=== PATIENT | female | born 1990 | race Caucasian/White ===

== ENCOUNTER 2017-06-19 08:05 | Outpatient (CLI) | payer BC | END 2017-06-19 08:06 | disposition home or self-care (01) | LOC: DTY/OP 08:05 | PROVIDERS: ATTEND Specialist | DX: Z01.818 Encounter for other preprocedural examination (principal); E66.01 Morbid (severe) obesity due to excess calories | CPT/HCPCS: 36415; 80053; 80061; 82306; 82607; 82728; 82746; 83036; 83540; 84425; 84436; 84443; 84479; 85025; 86677; 97802 ==

== ENCOUNTER 2017-08-11 11:36 | Outpatient (CLI) | payer BC ==
[2017-08-11 13:28] LABS: BHCG - Serum Negative (NEGATIVE); Pregs Control Background? CLEAR/WHITE (CLR/WHITE); Pregs Control Bar Appear? YES (CONTROL BAR)
== END 2017-08-11 11:37 | disposition home or self-care (01) ==
LOC: LABBT 11:36
PROVIDERS: ATTEND Specialist
DX: Z01.818 Encounter for other preprocedural examination (principal); E66.01 Morbid (severe) obesity due to excess calories
CPT/HCPCS: 84703

== ENCOUNTER 2017-08-11 13:00 | Inpatient (IN) | payer BC ==
[2017-08-11 12:22] VITALS: BMI 41.8
--- NOTE | 2017-08-11 13:54 | HP ---
"ADDENDUM: This is an addendum to H&P #[id number] dictated on 06/09/2017." HISTORY OF PRESENT ILLNESS: Gabbi Vazquez is a 26-year-old female, attending our bariatric seminar and going through our bariatric program, interested in laparoscopic sleeve gastrectomy due to failure of past dietary efforts to obtain a sustainable weight loss. Initially when I saw her, her weight w as 300 pounds, BMI 41 and has remained fairly constant in her preoperative evaluation such that today she is 300 pounds, 41 BMI, 5 foot 11 inches. She has seen Psychology, obtain bariatric labs and fel t to be a good candidate for bariatric surgery as she will participate in perioperative and postopera tive followup and support groups and understands she will need to take an active role in dietary ana lilia ctions and an activities to obtain optimal results. 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 Risks and benefits of procedure reviewed today. Questions answere roderick. ALLERGIES: CECLOR. MEDICATIONS: Metformin 500 twice a day, duloxetine 60 mg daily, spironolactone 25 mg daily. PAST MEDICAL HISTORY: 1. Environmental allergies. 2. Asthma 3. Diabetes. 4. Obesity. 5. Depression. PAST SURGICAL HISTORY: Appendectomy in 2003. REVIEW OF SYSTEMS: Ten point otherwise noncontributory. PHYSICAL EXAMINATION: VITAL SIGNS: Height 5 foot 11, 300 pounds, 41.19 BMI. Blood pressure 130/89, 84, 96.8 degrees. HEENT: Unremarkable. LUNGS: Clear to auscultation. CARDIAC: Regular rate and rhythm without murmur or gallop. ABDOMEN: Soft, obese, nontender. NEURO: Neurologically intact. No focal deficit. LYMPH: No lymphadenopathy in neck, axilla, groins. EXTREMITIES: Without edema, without venous stasis changes. ASSESSMENT AND PLAN: Morbid obesity with comorbidities of diabetes mellitus type 2 and depression. PLAN: Laparoscopic sleeve gastrectomy. Risk of infection, bleeding, reoperation, outlet obstruction , nausea, vomiting discussed. She consents. Possibility of reflux discussed. Questions answered.
--- NOTE | 2017-08-11 13:59 | HP ---
HISTORY OF PRESENT ILLNESS: A 20-umpc-alo female, 5 feet 11, 300 pounds 41.9 BMI, attended our bariatric seminar recently and interested in laparoscopic sleeve gastrectomy. She is followed by Dr. Alli Ceballos. She is on metformin for prediabetes and takes spironolactone for masculinizing hormo ne. 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 Her parents help her with her child nurse. Her mother had a laparoscopic sleeve gastrectomy that I performed. Ba tomas hopes to have a successful weight loss to have a more active and productive life and to avoid assoc iated medical problems with obesity and to resolve her early diabetes. She does not have sleep apnea , although both of her parents have sleep apnea. She denies experiencing any prior history of horowitz ry artery disease, cholesterol, hypertension, GERD. She has had numerous aggressive attempts at weig ht loss, which have been unsuccessful or not durable. She understands that she will have to actively participate in good food choices and participate in activity level and follow up to be successful an d has good expectations of bariatric surgery. PAST MEDICAL HISTORY: Diabetes mellitus, just started on metformin; asthma; environmental allergies. PAST SURGICAL HISTORY: Appendectomy in the past, 1, para 1. A 2-1/2-year-old boy. FAMILY HISTORY: Hypertension, sleep apnea. Her great aunt and great paternal grandmother of ca ncer of some sort. TOBACCO: None. ALCOHOL: Rarely. MEDICATIONS: Metformin 500 mg twice a day, duloxetine 60 mg once a day, spironolactone 25 mg once a day. REVIEW OF SYSTEMS: Ten-point noncontributory. PHYSICAL EXAMINATION: VITAL SIGNS: 5 feet 11, 300 pounds, 41.9 BMI, 142/93, 105, 98.6 degrees. HEAD, EARS, EYES, NOSE, AND THROAT: Unremarkable. LUNGS: Clear to auscultation. CARDIAC: Regular rate and rhythm without murmur, rub, or gallop. ABDOMEN: Soft, obese, nontender, no evident hernias. LYMPH: Groins, axillar, and neck without lymphadenopathy. NEUROLOGIC: Neurologically intact. No focal deficits. EXTREMITIES: No evidence of venous stasis disease and no ankle edema. ASSESSMENT AND PLAN: 1. Morbid obesity, 5 feet 11, 300 pounds, 41.9 BMI with comorbidities of early diabetes on metformin and masculinizing hormone, on spironolactone. Risk of infection, bleeding, reoperation, sleeve brien rectomy leakage, etc., discussed. Questions answered. She is well informed from the seminar 2. Diabetes mellitus. 3. Masculinizing hormone, on spironolactone. 4. Depression, on duloxetine.
[2017-08-13] MEDS ORDERED: Scopolamine 1.5 mg/72 hour Patch ONE (09:49)
[2017-08-13] MEDS ORDERED: Ketorolac Tromethamine 30 MG/ML VIAL ONE (09:49)
[2017-08-13] MEDS ORDERED: Heparin 5,000 UNITS/ML VIAL ONE (09:49)
[2017-08-13] MEDS ORDERED: Fentanyl 250 MCG/5 ML VIAL ONE (10:17)
[2017-08-13] MEDS ORDERED: Bupivacaine/Epinephrine 0.25% 30 ML VIAL ONE (10:23)
[2017-08-13] MEDS ORDERED: Midazolam HCl 2 mg/2 ml Vial ONE (10:38)
[2017-08-13] MEDS ORDERED: CEFAZOLIN/Water 2 GM/20 ML SYRINGE ONE (10:38)
[2017-08-13] MEDS ORDERED: Levofloxacin 500 mg/D5W 100 ml Premix Bag ONE (10:52)
[2017-08-13] MEDS ORDERED: cefOXitin 2 GM, Syringe 1 ML in Sterile Water 10 ML SLOW IVP SCH (11:00)
[2017-08-13] MEDS ORDERED: Promethazine HCl 25 MG/ML VIAL SLOW IVP PRN (12:48)
[2017-08-13] MEDS ORDERED: Ondansetron HCl/PF 4 MG/2 ML Vial IVP PRN ×2 (12:48→12:50)
[2017-08-13] MEDS ORDERED: Morphine Sulfate 2 MG/ML SYRINGE SLOW IVP PRN (12:48)
[2017-08-13] MEDS ORDERED: Promethazine HCl 25 MG/ML VIAL IM PRN ×2 (12:48→15:20)
[2017-08-13] MEDS ORDERED: diphenhydrAMINE 50 MG/ML VIAL IVP PRN (12:50)
[2017-08-13] MEDS ORDERED: HumaLOG 300 UNITS/3 ML VIAL SC PRN (12:50)
[2017-08-13] MEDS ORDERED: Dextrose 5% in Water 1,000 ML IV PRN (12:50)
[2017-08-13] MEDS ORDERED: hydrALAZINE 20 MG/ML VIAL SLOW IVP PRN (12:50)
[2017-08-13] MEDS ORDERED: Dextrose 50% Abboject 50 ML SYRINGE SLOW IVP PRN (12:50)
[2017-08-13] MEDS ORDERED: Morphine 4 MG/ML VIAL SLOW IVP PRN ×2 (12:50)
[2017-08-13] MEDS ORDERED: Ondansetron ODT 8 MG TAB PO PRN (12:56)
[2017-08-13] MEDS ORDERED: Ondansetron ORAL SOLN. 4 MG/5 ML UDCUP PO PRN ×2 (12:56)
[2017-08-13] MEDS ORDERED: Ondansetron ODT 4 MG TAB PO PRN (12:56)
[2017-08-13] MEDS ORDERED: Ondansetron ODT 8 MG TAB SL PRN (12:56)
--- NOTE | 2017-08-13 13:14 | OP ---
DATE OF PROCEDURE: 08/13/2017 PREOPERATIVE DIAGNOSES: 1. Morbid obesity. 2. Depression. 3. Diabetes mellitus. 4. Weight 300 pounds, 41 BMI. POSTOPERATIVE DIAGNOSES: 1. Morbid obesity. 2. Depression. 3. Diabetes mellitus. 4. Weight 300 pounds, 41 BMI. PROCEDURE: Laparoscopic sleeve gastrectomy, completion endoscopy, 36 Nigerian bougie used, staple line within 4 cm of the pylorus. SURGEON: Dr. Raymond Garcia ANESTHESIA: General. Local 0.25% Marcaine with epinephrine 60 mL. Completion endoscopy revealed visualization of the pylorus, passed easily without restriction. PROCEDURE: The patient was taken to the operating room where under general anesthesia, abdomen was p repared with ChloraPrep, draped in routine fashion. Local anesthetic infiltrated in the skin and sub cutaneous tissue about all port sites. Supraumbilical incision made and pneumoperitoneum to 15 mmHg obtained the Veress needle replacing it with a 5 port, video laparoscope inserted. Bilateral upper a bdominal midclavicular incisions made and a 15 port placed on the left, a 12 port placed on the right . Bilateral far lateral subcostal incision made and 5 ports placed. Subxiphoid incision made and a Nathansen liver retractor placed reflecting the left lobe of liver anteriorly. Liver was small and n ot fatty at all. Gallbladder appeared to be normal grossly, abdominal cavity was normal. The stomac h was large, but not thick walled. Omentum was bulky. At this point, the stomach decompressed with an orogastric tube, which was removed. Gastrocolic ligament taken down from the stomach using the Li gaSure beginning within 4 cm of pylorus advancing cephalad along the greater curvature of the stomach up to the angle of His. Posterior stomach was cleared and fully mobilized. At this point, a #36 Fr ench bougie placed orally by Anesthesia, visualized laparoscopically to be within the abdominal cavit y along the lesser curvature, directed down towards the pylorus. The stomach serially divided initia lly with Endo-BRYAN stapler using green load, then gold load and then serial blue load staplers taking care not to narrow the incisura and staying clear of the angle of His. Good staple line was visualiz ed. The stomach was removed through the 15 mm port site left upper abdomen and this incision closed with suture of 0 Vicryl GraNee needle under laparoscopic visualization. The stomach was removed and submitted to Pathology. Good hemostasis noted. Completion endoscopy performed as I advanced to the head of the table and performed upper endoscopy visualizing the oropharynx, esophagus, passing the sc ope down into the gastric sleeve, visualizing the pylorus, decompressing the stomach, noting absence of any bleeding or problems the scope withdrawn. The esophagus was normal. At this point, abdominal cavity was irrigated. Liver retractor removed. Staple line had been inspected and noted be hemosta tic. Distally the staple lines reinforced with clips gaining excellent hemostasis. Irrigant and pne umoperitoneum evacuated. All this instruments removed and all skin incisions approximated with subde rmal 4-0 Monocryl and DermaGlue applied.
[2017-08-13] MEDS ORDERED: Promethazine HCl 25 MG SUPP PR PRN (15:20)
[2017-08-13] MEDS ORDERED: Propofol 200 MG/20 ML VIAL ONE (15:41)
[2017-08-13] MEDS ORDERED: Ondansetron HCl/PF 4 MG/2 ML Vial ONE (15:41)
[2017-08-13] MEDS ORDERED: Glycopyrrolate 0.2 MG/ML 5 ML SYRINGE ONE (15:41)
[2017-08-13] MEDS ORDERED: Dexamethasone 20 MG/5 ML VIAL ONE (15:41)
[2017-08-13] MEDS ORDERED: Lidocaine 1% PF 5 ML VIAL ONE (15:41)
[2017-08-13] MEDS ORDERED: Succinylcholine Chloride 20 MG/ML 10 ml SYRINGE FS ONE (15:41)
[2017-08-13] MEDS: 1/2 NS w/KCL 20 mEq 1,000 ML IV SCH ×2 (17:14→22:39)
[2017-08-13] MEDS: Acetaminophen 1,000 MG in Premix Bag 1 BAG IVPB SCH ×2 (17:15→23:16)
[2017-08-13] MEDS: Ketorolac Tromethamine 30 MG/ML VIAL IVP SCH ×2 (17:15→23:15)
[2017-08-13] MEDS ORDERED: Enoxaparin Sodium 40 MG/0.4 ML SYRINGE SC SCH (21:00)
[2017-08-14 04:52] LABS: #Lymphocytes 2.4 thou/uL (1.20-3.40); #Monocytes 0.9 thou/uL (0.11-0.59); #Neutrophils 8.2 thou/uL (1.40-6.50); %Basophils 0.2 % (0.0-1.0); %Eosinophils 0.3 % (0.0-10.0); %Lymphocytes 21.1 % (21.0-51.0); %Monocytes 7.4 % (0.0-10.0); %Neutrophils 71.1 % (42.0-75.0); Hemoglobin 12.6 g/dL (12.0-16.0); Mean Corpuscular HGB CONC 33.2 g/dL (32.0-36.0); Mean Corpuscular Hemoglobin 28.3 pg (27.0-31.0); Mean Corpuscular Volume 85.2 fl (81.0-99.0); Mean Platelet Volume 6.3 fL (7.4-10.4); Platelet Count 344 thou/uL (130-400); RBC Distribution Width 12.5 % (11.5-14.5); Red Blood Cell (RBC) Count 4.46 mill/uL (4.20-5.40); White Blood Cell (WBC) Count 11.5 thou/uL (4.8-10.8)
[2017-08-14 05:00] LABS: Anion Gap 11 mmol/L (10-20); BUN (Urea Nitrogen) 8 mg/dL (7.0-18.7); Calc. Creatinine Clearance 233 mL/min (70-130); Calcium 9.5 mg/dL (7.8-10.44); Carbon Dioxide 25 mmol/L (22-29); Chloride 106 mmol/L (98-107); Estimated GFR-MDRD 88; Glucose 86 mg/dL (70-105); Potassium 4.2 mmol/L (3.5-5.1); Sodium 138 mmol/L (136-145)
[2017-08-14] MEDS: Ketorolac Tromethamine 30 MG/ML VIAL IVP SCH (05:56)
[2017-08-14] MEDS: Acetaminophen 1,000 MG in Premix Bag 1 BAG IVPB SCH (05:57)
[2017-08-14] MEDS: 1/2 NS w/KCL 20 mEq 1,000 ML IV SCH (05:57)
[2017-08-14 07:56] VITALS: BP 115/82; TEMP 98.1
[2017-08-14] MEDS ORDERED: Pantoprazole 40 MG VIAL IVP SCH (09:00)
[2017-08-14] MEDS ORDERED: traMADol HCl 50 MG TAB PO PRN ×2 (10:16)
[2017-08-14] MEDS ORDERED: Hydrocodone-Acetamin 15 ML UDCUP PO PRN (12:00)
[2017-08-14] MEDS ORDERED: Acetaminophen 500 MG TAB PO PRN (12:00)
--- NOTE | 2017-08-14 18:03 | PRG ---
DATE OF SERVICE: 08/14/2017 SUBJECTIVE: Ms. Gabbi Vazquez is doing well after laparoscopic sleeve gastrectomy. She is witho ut complaints. Surgical wounds look good. OBJECTIVE: VITAL SIGNS: Stable. She is afebrile. LUNGS: Clear to auscultation. CARDIAC: Regular rate and rhythm without murmur or gallop. ABDOMEN: Soft and nontender. LABORATORY DATA: Labs are normal this morning. ASSESSMENT AND PLAN: She is tolerating liquids and she will be discharged home later this morning. Tylenol and Ultram for pain. Lortab Elixir should she need it. Follow up in my office in 2-3 weeks. Advance diet per bariatric protocol.
--- NOTE | 2017-08-15 00:03 | DIS ---
DATE OF ADMISSION: 08/13/2017 DATE OF DISCHARGE: 08/14/2017 DISCHARGE DIAGNOSES: Morbid obesity, depression, and diabetes mellitus. POSTOPERATIVE DIAGNOSES: Morbid obesity, depression, and diabetes mellitus. PROCEDURES: Laparoscopic sleeve gastrectomy, 36 Polish bougie, staple line within 4 cm of the pyloru s, completion endoscopy. HISTORY: A 26-year-old female, attending our bariatric seminar and going through our bariatric prepa ration seminar, meeting with the dietitian, seen the psychologist, obtaining baseline labs, presents for laparoscopic sleeve gastrectomy, undergoing the procedure, doing well overnight. She had some na usea that evening, but began her bariatric liquids the next morning without a swallow study. Labs we re normal. She was discharged home. Follow up in my office in 1 to 2 weeks per appointment. She wi ll use [id number] Tylenol, Ultram for pain, Lortab Elixir for breakthrough pain and resume her home medications, Prilosec for 3 months and she will hold her metformin and spironolactone.
== END 2017-08-14 10:43 | disposition home or self-care (01) | DRG 621 ==
LOC: SURG A 08-13 09:34
PROVIDERS: ADMIT Specialist; ATTEND Specialist
PROC: 0DB64Z3 Excision of Stomach, Percutaneous Endoscopic Approach, Vertical (ICD-10-PCS; principal; 2017-08-13)
DX: E66.01 Morbid (severe) obesity due to excess calories (principal); E25.9 Adrenogenital disorder, unspecified; E11.9 Type 2 diabetes mellitus without complications; G47.30 Sleep apnea, unspecified; Z68.41 Body mass index [BMI] 40.0-44.9, adult; Z79.84 Long term (current) use of oral hypoglycemic drugs; F32.9 Major depressive disorder, single episode, unspecified
CPT/HCPCS: 36415; 36416; 80048; 85025; 88307; 88312; 94760; A4216; C9113; J0131; J0694; J1100; J1644; J1650; J1885; J1956; J2001; J2250; J2270; J2405; J2704; J3010

== ENCOUNTER 2018-05-08 21:57 | Emergency (ER) | payer BC ==
[2018-05-08 23:00] LABS: #Basophils 0.1 thou/uL (0.0-0.2); #Eosinphils 0.3 thou/uL (0.0-0.7); #Lymphocytes 2.6 thou/uL (1.20-3.40); #Monocytes 0.8 thou/uL (0.11-0.59); #Neutrophils 8.7 thou/uL (1.40-6.50); %Basophils 0.8 % (0.0-1.0); %Eosinophils 2.7 % (0.0-10.0); %Lymphocytes 20.9 % (21.0-51.0); %Monocytes 6.2 % (0.0-10.0); %Neutrophils 69.3 % (42.0-75.0); Hemoglobin 13.5 g/dL (12.0-16.0); Mean Corpuscular Hemoglobin 30.8 pg (27.0-31.0); Mean Corpuscular Volume 90.6 fL (78.0-98.0); Mean Platelet Volume 6.9 fL (7.4-10.4); Platelet Count 298 thou/uL (130-400); RBC Distribution Width 11.5 % (11.5-14.5); Red Blood Cell (RBC) Count 4.38 mill/uL (4.20-5.40); White Blood Cell (WBC) Count 12.6 thou/uL (4.8-10.8)
[2018-05-08 23:23] LABS: ALT (SGPT) 12 U/L (8-55); AST (SGOT) 12 U/L (5-34); Alkaline Phosphatase 60 U/L (40-150); Anion Gap 13 mmol/L (10-20); BUN (Urea Nitrogen) 14 mg/dL (7.0-18.7); Bilirubin, Total 0.3 mg/dL (0.2-1.2); Calc. Creatinine Clearance 0 mL/min (70-130); Calcium 9.4 mg/dL (7.8-10.44); Carbon Dioxide 23 mmol/L (22-29); Chloride 107 mmol/L (98-107); Estimated GFR-MDRD 80; Globulin 2.9 g/dL (2.4-3.5); Glucose 90 mg/dL (70-105); Lipase 36 U/L (8-78); Potassium 3.7 mmol/L (3.5-5.1); Protein, Total 6.9 g/dL (6.0-8.3); Sodium 139 mmol/L (136-145)
--- NOTE | 2018-05-09 00:29 | ULT ---
GALLBLADDER ULTRASOUND: 05/08/18 HISTORY: Right upper quadrant pain. COMPARISON: None. TECHNIQUE: Utilizing a multihertz transducer, sonographic imaging of the right upper quadrant is performed in th e longitudinal and transverse plane. FINDINGS: The head of the pancreas has a normal echotexture. The remainder of the pancreas is obscured by bowel gas. Hepatic parenchyma has a normal echotexture. No hepatic masses or intrahepatic biliary dilatation. Co ntour of the hepatic margin is maintained. Within the gallbladder, there are small stones and sludge. Gallbladder wall is not thickened. No awais cholecystic fluid. Negative Dong's sign. Common bile duct diameter is 0.4 cm. Right kidney has a normal cortical echotexture. No hydronephrosis. Right kidney measures 3.2 x 12.0 x 5.3 cm. IMPRESSION: 1. Sludge and stones within the lumen of the gallbladder. No sonographic evidence of cholecystit is. Nonemergent HIDA scan if clinically warranted. 2. Normal caliber common bile duct. POS: [facility]
== END 2018-05-09 00:23 | disposition home or self-care (01) ==
LOC: ERS 21:57
DX: K80.20 Calculus of gallbladder without cholecystitis without obstruction (principal); J45.909 Unspecified asthma, uncomplicated; F32.9 Major depressive disorder, single episode, unspecified
CPT/HCPCS: 36415; 76705; 80053; 83690; 85025

== ENCOUNTER 2018-05-19 07:16 | Day surgery (SDC) | payer BC ==
[2018-05-18 16:28] VITALS: BMI 28.8
--- NOTE | 2018-05-19 07:49 | HP ---
HISTORY OF PRESENT ILLNESS: Gabbi Vazquez is a 27-year-old female, status post sleeve gastrectomy 9 months ago on 08/13/2017. Today, she has lost 93 pounds, representing 62% excess body weight loss, decreasing her weight from 300 pounds to today 207 pounds, and from 41 BMI to 28 BMI. She is followed by Dr. Ceballos. She has done very well. She presented to the emergency room recently on May 08, 2018, with epigastric pain, right upper quadrant pain, and flank radiation and scapular pain. She had nausea. She underwent gallbladder ultrasound reveled a normal bile duct caliber, and gallstones and sludge identified. CBC and comprehensive metabolic profile are unremarkable. Liver function tests normal. CURRENT MEDICATIONS: 1. Calcium. 2. Vitamins. 3. Biotin. PAST MEDICAL HISTORY: Allergies, asthma. She was prediabetic when I saw her, but she has done well since. Her glucose was normal on her emergency room evaluation. PAST SURGICAL HISTORY: Appendectomy, laparoscopic sleeve gastrectomy on 08/13/2017, has done very well postoperatively. SOCIAL HISTORY: Tobacco, none. ALLERGIES: CECLOR. REVIEW OF SYSTEMS: Noncontributory. FAMILY HISTORY: Noncontributory. PHYSICAL EXAMINATION: VITAL SIGNS: Height 5 foot 11 inches, weight 207 pounds, 28 BMI. Blood pressure 123/82, pulse 79, and temperature 98.8 degrees. HEAD, EARS, EYES, NOSE, AND THROAT: Unremarkable. LUNGS: Clear to auscultation. CARDIAC: Regular rate and rhythm without murmur or gallop. ABDOMEN: Soft and nontender. No masses. EXTREMITIES: Unremarkable. HEENT: Sclerae nonicteric. SKIN: Nonjaundiced. No abdominal hernias. ASSESSMENT AND PLAN: Chronic cholecystitis and cholelithiasis. I recommend laparoscopic video cholecystectomy. Risks of infection, bleeding, visceral injury, open operation, etc were discussed. Questions answered. Job ID: [id number]
[2018-05-19] MEDS ORDERED: Levofloxacin 500 mg/D5W 100 ml Premix Bag ONE (08:27)
[2018-05-19] MEDS ORDERED: Ketorolac Tromethamine 30 MG/ML VIAL ONE (08:27)
[2018-05-19] MEDS ORDERED: Scopolamine 1.5 mg/72 hour Patch ONE (08:28)
[2018-05-19 09:06] LABS: BHCG - Serum Negative (NEGATIVE); Pregs Control Background? CLEAR/WHITE (CLR/WHITE); Pregs Control Bar Appear? YES (CONTROL BAR)
[2018-05-19] MEDS ORDERED: Fentanyl 100 MCG/2 ML VIAL ONE ×3 (09:24→12:03)
[2018-05-19] MEDS ORDERED: Bupivacaine HCl 0.5%/Epinephrine 1:200,000/PF 30 ml Vial ONE (09:28)
[2018-05-19] MEDS ORDERED: Promethazine HCl 25 MG/ML VIAL ONE (11:10)
[2018-05-19] MEDS ORDERED: Ondansetron PF 4 MG/2 ML Vial ONE (15:17)
[2018-05-19] MEDS ORDERED: Lidocaine 1% PF 5 ML VIAL ONE (15:17)
[2018-05-19] MEDS ORDERED: ePHEDrine/0.9% NaCl/PF SYRINGE 50 mg/10 ml ONE (15:17)
[2018-05-19] MEDS ORDERED: PROPOFOL 200 MG/20 ML VIAL ONE (15:17)
[2018-05-19] MEDS ORDERED: Dexamethasone 20 MG/5 ML VIAL ONE (15:17)
--- NOTE | 2018-05-19 16:51 | OP ---
DATE OF PROCEDURE: 05/19/2018 PREOPERATIVE DIAGNOSES: Chronic cholecystitis, cholelithiasis, status post laparoscopic sleeve gastrectomy. POSTOPERATIVE DIAGNOSES: Chronic cholecystitis, cholelithiasis, status post laparoscopic sleeve gastrectomy. PROCEDURE PERFORMED: Laparoscopic video cholecystectomy. ANESTHESIA: General, local with 0.5% Marcaine with epinephrine 30 mL of total volume used. DESCRIPTION OF PROCEDURE: The patient was taken to the operating room, where under general anesthesia, abdomen was prepared with ChloraPrep and draped in routine fashion. Local anesthetic was infiltrated in the skin and subcutaneous tissue at each port site. Infraumbilical incision was made. Pneumoperitoneum to 15 mmHg obtained with a Veress needle, replaced with a 5 port, laparoscope inserted. A right subxiphoid incision was made and 11 port placed. A right subcostal incision was made, midclavicular and anterior axillary lines and 5 mm port was placed. Liver appeared to be normal. Right abdominal cavity grossly normal. Fundus of the gallbladder was grasped at the cephalad. Infundibulum was grasped laterally. Cystic artery and duct dissected free. Critical view obtained. Cystic artery and duct double clipped proximally, divided, gallbladder dissected free from the liver bed obtaining good hemostasis prior to division of the final peritoneal attachments. Gallbladder with multiple small stones were removed and submitted to Pathology. Good hemostasis ensured with the cautery. Irrigant and pneumoperitoneum evacuated. All instruments were removed. All skin incisions were approximated with interrupted subdermal 4-0 Monocryl and Dermaglue applied. Job ID: [id number]
== END 2018-05-19 14:46 | disposition home or self-care (01) ==
LOC: SDC 07:16
PROVIDERS: ATTEND Specialist
PROC: 0FT44ZZ Resection of Gallbladder, Percutaneous Endoscopic Approach (ICD-10-PCS; principal; 2018-05-19)
DX: K80.10 Calculus of gallbladder with chronic cholecystitis without obstruction (principal); J45.909 Unspecified asthma, uncomplicated; Z79.899 Other long term (current) drug therapy; Z88.1 Allergy status to other antibiotic agents; Z91.038 Other insect allergy status; Z98.84 Bariatric surgery status
CPT/HCPCS: 84703; 88304; 96374; J0131; J0670; J1100; J1885; J1956; J2001; J2405; J2550; J2704; J3010